=== PATIENT | female | born 1940 | race Caucasian/White ===

== ENCOUNTER 2020-09-22 22:06 | Emergency (ER) | payer OTHER ==
[2020-09-22 23:20] LABS: BASOPHIL 0.3 % (0-2); EOSINOPHIL 0.6 % (0-7); HCT 39.7 % (37.0-47.0); HGB 12.8 g/dl (12.5-16.0); LYMPHOCYTE 21.2 % (15-48); MCHC 32.2 g/dL (32.0-36.0); MONOCYTE 8.6 % (0-12); MPV 9.2 fL (6.0-9.5); NRBC 0; PLT 283 K/uL (150-400); RBC 4.41 M/uL (4.20-5.40); RDW 13.3 % (11.5-14.0); WBC 8.9 K/uL (4.0-10.5)
[2020-09-22 23:32] LABS: INR 0.89 (0.9-1.2); PROTHROMBIN TIME 11.4 SECONDS (11.4-13.6); PTT 28.1 SECONDS (22.2-34.7)
[2020-09-22 23:38] LABS: ALBUMIN 3.6 g/dL (3.4-5.0); BILIRUBIN - TOTAL 0.3 mg/dL (0.2-1.0); CREATININE 0.95 mg/dL (0.51-0.95); GLOBULIN (CALCULATION) 3.6 g/dL; POTASSIUM 4.4 mmol/L (3.5-5.1); TOTAL PROTEIN 7.2 g/dL (6.4-8.2)
[2020-09-23 00:23] LABS: BILIRUBIN NEGATIVE (NEGATIVE); BLOOD NEGATIVE Ery/uL (NEGATIVE); CLARITY CLEAR (CLEAR); COLOR YELLOW (YELLOW); GLUCOSE (U) NORMAL (NORMAL); LEUKOCYTES TRACE Leu/uL (NEGATIVE); NITRITE NEGATIVE (NEGATIVE); PROTEIN NEGATIVE (NEGATIVE); SPECIFIC GRAVITY 1.015 (1.001-1.030); UROBILINOGEN 0.2 mg/dL (0.2-1.0)
[2020-09-23 00:32] LABS: BACTERIA TRACE
[2020-09-23] MEDS ORDERED: NORCO 5-325 TA1 EACH PO (02:45)
[2020-09-23] MEDS ORDERED: ONDANSETRON ODT4 MG PO (02:45)
== END 2020-09-23 02:55 | disposition home or self-care (01) ==
LOC: FER 22:06
PROVIDERS: Emergency Medicine
DX: M51.36 Other intervertebral disc degeneration, lumbar region (principal); I10 Essential (primary) hypertension; E11.9 Type 2 diabetes mellitus without complications; E78.5 Hyperlipidemia, unspecified; E07.9 Disorder of thyroid, unspecified; Z79.899 Other long term (current) drug therapy
CPT/HCPCS: 36415; 71275; 72131; 72193; 80053; 81001; 83690; 84484; 85025; 85610; 85730; 87040; 87088; 93005; J2060; J2270; J2405; Q9967